=== PATIENT | male | born 1955 | race Caucasian/White ===

== ENCOUNTER → 2019-12-17 | Outpatient (CLI) | payer OTHER | LOC: M.ULTRA 12-10 13:00 | DX: E88.81 Metabolic syndrome and other insulin resistance (principal); Z79.899 Other long term (current) drug therapy ==

== ENCOUNTER → 2020-03-11 | Outpatient (CLI) | payer OTHER | LOC: M.RAD 10:43 | DX: M43.22 Fusion of spine, cervical region (principal); M48.02 Spinal stenosis, cervical region; M25.78 Osteophyte, vertebrae; I65.29 Occlusion and stenosis of unspecified carotid artery ==

== ENCOUNTER → 2021-06-22 | Outpatient (CLI) | payer OTHER | LOC: M.RAD 12:24 | PROVIDERS: ATTEND Internal Medicine | DX: R05 Cough (principal) ==